=== PATIENT | female | born 1950 | race Hispanic/Latino ===

== ENCOUNTER 2016-06-05 14:30 | Outpatient (CLI) | payer MEDICARE ==
--- NOTE | 2016-06-09 09:08 | PET Report ---
PET/CT:06/05/16 14:30:00 CLINICAL: Breast cancer staging. RADIOPHARMACEUTICAL: 13.44mCi F18-FDG. COMPARISON: 08/03/14 PET/CT TECHNIQUE- Following intravenous injection of F-18 FDG and an approximately 60 minute uptake period, CT and PET images from the mid skull to the upper thighs were acquired with the patient in the fasted state. No contrast was administered. The CT protocol used for this PET CT study is designed for attenuation correction and anatomic localization of PET abnormalities. This it service delivery manager CT is not desired to produce and cannot replace, [id number] diagnostic CT scans with specific imaging protocols for different body parts and indications. Plasma glucose at the time of this test: 91g/dl. The standardized uptake values (SUV) are normalized to patient body weight and indicate the highest activity concentration (SUV max) in a given disease site. FINDINGS: Brain--Physiologic FDG uptake in the visualized regions of the brain. Neck--Physiologic FDG uptake . Chest--Physiologic FDG uptake in mediastinal blood pool and myocardium. Lungs--No abnormal uptake. No pulmonary nodule or mass. Pleura/pericardium--No abnormal uptake. Thoracic nodes--No abnormal uptake. The FDG avid left axillary lymph nodes have resolved. Hepatobiliary--No abnormal uptake. Liver background SUV mean, as a reference for comparing FDG studies, is 4.27 compared to 4.35 on the last exam. No liver mass. Stable benign hepatic cyst in the lateral segment of the left lobe measuring 2.4 cm. Spleen--No abnormal uptake. Pancreas--No abnormal uptake. Adrenal Glands--No abnormal uptake. Kidneys/Ureters/Bladder--No abnormal uptake. Abdominopelvic Nodes--No abnormal uptake. Bowel/Peritoneum/Mesentery--No abnormal uptake. Pelvic organs--No abnormal uptake. Bones/Soft Tissues--Although some FDG avid bone lesions have resolved (including the previous described right humeral lesion), there are numerous new FDG avid bone lesions involving the spine, sternum and pelvis. IMPRESSION- Mixed response to treatment with resolution of some lesions but an overall increase in FDG avid skeletal lesions compared to the previous exam.
== END 2016-06-05 14:31 | disposition home or self-care (01) ==
LOC: PET 14:30
PROVIDERS: ATTEND Internal Medicine Hematology
DX: C50.412 Malignant neoplasm of upper-outer quadrant of left female breast (principal)
CPT/HCPCS: 78815; 82962; A9552

== ENCOUNTER 2017-02-12 11:41 | Outpatient (CLI) | payer MEDICARE ==
[2017-02-12 12:46] LABS: Blood Urea Nitrogen 9 mg/dL (7-17)
[2017-02-12] MEDS ORDERED: NACL ONE (13:49)
--- NOTE | 2017-02-12 15:01 | Cat Scan Report ---
CT scan of chest abdomen and pelvis with IV contrast: Compared to 03/26/16. History: Malignant neoplasm of breast. Findings: No endobronchial or mediastinal mass. No mediastinal, hilar or axillary adenopathy. No pleural or pericardial effusion. Scarring or discoid atelectasis right and left lung without interval change. No significant interval change. Normal size liver. Stable hepatic cyst without interval change. Normal gallbladder pancreas and spleen. Stable ovoid heterogeneous left adrenal mass measuring 4 x 2.7 cm. Normal kidney parenchyma and bladder. No free intraperitoneal fluid or air. No evidence of adenopathy. Gaseous colon with large volume of stool in colon. Stable predominantly scattered sclerotic bone lesions involving the left fourth rib lumbar spine and pelvis. A small lytic lesion of right L3 superior facet. Impression: No definite evidence of pulmonary or hepatic metastases. Stable hepatic cysts. Stable left adrenal mass. No significant interval change in metastatic foci along the skeleton.
--- NOTE | 2017-02-13 14:54 | Nuclear Medicine Report ---
Whole body bone scan: Left breast cancer. Following injection of radionuclide whole body images were obtained approximately 3 hours. Normal dictated identified in the urinary tract and is a good bone to background ratio. Comparison is made to prior to exams dating December and March 2016. There is focal uptake in the lateral aspect of the left fourth rib, right pedicle region of L3 and costovertebral regions of the left eighth and ninth ribs unchanged from prior exams. New focal increased activity is identified in the anterior margins of the left second rib and right 5 through seventh ribs. A new focal area is also identified just above the right acetabulum, proximal right femur at trochanteric location, and questionably in the left maxilla. No other significant findings. Impressions: Interval increase in foci of abnormal activity of concern for metastatic change.
== END 2017-02-12 11:42 | disposition home or self-care (01) ==
LOC: NM 11:41
PROVIDERS: ATTEND Internal Medicine Hematology
DX: C50.412 Malignant neoplasm of upper-outer quadrant of left female breast (principal); J98.11 Atelectasis; K76.89 Other specified diseases of liver; E27.8 Other specified disorders of adrenal gland; M89.9 Disorder of bone, unspecified; E53.8 Deficiency of other specified B group vitamins
CPT/HCPCS: 36415; 71260; 74177; 78306; 82565; 84520; A9503; Q9967

== ENCOUNTER 2017-03-25 17:31 | Emergency (ER) | payer MEDICARE ==
[2017-03-25 18:04] LABS: Hematocrit 27.4 % (30.3-42.9); Hemoglobin 8.8 gm/dl (10.1-14.3); Mean Corpuscular HGB Conc 32 % (30-34); Mean Corpuscular Hemoglobin 32 pg (28-32); Mean Corpuscular Volume 101 fl (79-97); Platelet Count 128 K/mm3 (140-440)
[2017-03-25 18:24] LABS: Anion Gap 20 mmol/L; BUN/Creatinine Ratio 28; Blood Urea Nitrogen 11 mg/dL (7-17); Calcium 9.1 mg/dL (8.4-10.2); Carbon Dioxide 26 mmol/L (22-30); Chloride 99.6 mmol/L (98-107); Glucose 105 mg/dL (65-100); Sodium 142 mmol/L (137-145)
[2017-03-25 19:52] LABS: Basophils % (Manual) 0 % (0.0-1.8); Blastocytes % (Manual) 0 %
[2017-03-25 19:53] LABS: Macrocytosis 1+; Microcytosis 1+; Poikilocytosis 1+
[2017-03-25 19:54] LABS: Diff Status Complete; Platelet Estimate Appears Decreased; Polychromasia 1+
--- NOTE | 2017-03-26 00:42 | Emergency Department Report ---
ED Palpitations HPI - General Chief Complaint: Arrhythmia/Palpitations Stated Complaint: SOB,HEART RACING Time Seen by Provider: 03/25/17 23:12 Source: patient Mode of arrival: Wheelchair Limitations: No Limitations - History of Present Illness MD Complaint: palpitations -: Gradual, week(s) (6) Context: occured during exertion Associated Symptoms: denies other symptoms Treatments Prior to Arrival: other (Resolves with rest. Has been noting anemia on oncology labs but has not been requested to have transfusion.) - Related Data Home Medications Medication Instructions Recorded Confirmed Last Taken Denosumab [Xgeva] 120 mg SQ QMONTH 06/26/16 06/26/16 06/10/15 Duloxetine HCl [DULoxetine] 30 mg PO BID 06/26/16 06/26/16 06/25/16 HYDROmorphone 4 mg PO Q4H PRN 06/26/16 06/26/16 06/25/16 23:30 Letrozole (Nf) [Femara (Nf)] 2.5 mg PO QDAY 06/26/16 06/26/16 06/25/16 Lisinopril [Zestril] 20 mg PO BID 06/26/16 06/26/16 06/25/16 Omeprazole Magnesium [PriLOSEC Otc] 20 mg PO QDAY PRN 06/26/16 06/26/16 06/25/16 Ondansetron [Zofran TAB] 4 mg PO Q8HR PRN 06/26/16 06/26/16 2 Months Ago amLODIPine [Norvasc] 5 mg PO DAILY 06/26/16 06/26/16 06/25/16 fentaNYL [Fentanyl] 1 each TD Q3D 06/26/16 06/26/16 3 Days Ago Allergies Allergy/AdvReac Type Severity Reaction Status Date / Time bupropion HCl Allergy Hives Verified 03/25/17 17:44 [From Wellbutrin] Penicillins Allergy Shortness Verified 03/25/17 17:44 of Breath Tetanus Vaccines and Toxoid Allergy Swelling Verified 03/25/17 17:44 [Tetanus Vaccines & Toxoid] ED Review of Systems ROS: Stated complaint: SOB,HEART RACING Other details as noted in HPI Constitutional: denies: chills, fever Eyes: denies: eye pain, eye discharge, vision change ENT: denies: ear pain, throat pain Respiratory: denies: cough, shortness of breath, wheezing Cardiovascular: denies: chest pain, palpitations Endocrine: no symptoms reported Gastrointestinal: denies: abdominal pain, nausea, diarrhea Genitourinary: denies: urgency, dysuria, discharge Musculoskeletal: denies: back pain, joint swelling, arthralgia Skin: denies: rash, lesions Neurological: denies: headache, weakness, paresthesias Psychiatric: denies: anxiety, depression Hematological/Lymphatic: denies: easy bleeding, easy bruising ED Past Medical Hx - Past Medical History Hx Hypertension: Yes (Reports taking propranolol at home. not currently on.) Hx Heart Attack/AMI: No Hx Renal Disease: No Hx Arthritis: Yes Hx Seizures: No Hx Psychiatric Treatment: Yes (depression/anxiety) Hx Asthma: No Hx COPD: No Additional medical history: left breast mass - Social History Smoking Status: Current Every Day Smoker Substance Use Type: None - Medications Home Medications: Home Medications Medication Instructions Recorded Confirmed Last Taken Type Denosumab [Xgeva] 120 mg SQ QMONTH 06/26/16 06/26/16 06/10/15 History Duloxetine HCl [DULoxetine] 30 mg PO BID 06/26/16 06/26/16 06/25/16 History HYDROmorphone 4 mg PO Q4H PRN 06/26/16 06/26/16 06/25/16 23:30 History Letrozole (Nf) [Femara (Nf)] 2.5 mg PO QDAY 06/26/16 06/26/16 06/25/16 History Lisinopril [Zestril] 20 mg PO BID 06/26/16 06/26/16 06/25/16 History Omeprazole Magnesium [PriLOSEC Otc] 20 mg PO QDAY PRN 06/26/16 06/26/16 History Ondansetron [Zofran TAB] 4 mg PO Q8HR PRN 06/26/16 06/26/16 2 Months Ago History amLODIPine [Norvasc] 5 mg PO DAILY 06/26/16 06/26/16 06/25/16 History fentaNYL [Fentanyl] 1 each TD Q3D 06/26/16 06/26/16 3 Days Ago History ED Physical Exam - General Limitations: No Limitations General appearance: alert, in no apparent distress - Head Head exam: Present: atraumatic, normocephalic - Eye Eye exam: Present: normal appearance - ENT ENT exam: Present: mucous membranes moist - Neck Neck exam: Present: normal inspection - Respiratory Respiratory exam: Present: normal lung sounds bilaterally. Absent: respiratory distress - Cardiovascular Cardiovascular Exam: Present: regular rate, normal rhythm. Absent: systolic murmur, diastolic murmur, rubs, gallop - GI/Abdominal GI/Abdominal exam: Present: soft, normal bowel sounds - Extremities Exam Extremities exam: Present: normal inspection - Back Exam Back exam: Present: normal inspection - Neurological Exam Neurological exam: Present: alert, oriented X3 - Psychiatric Psychiatric exam: Present: normal affect, normal mood - Skin Skin exam: Present: warm, dry, intact, normal color. Absent: rash ED Course Vital Signs 03/25/17 03/25/17 03/25/17 17:44 22:21 22:22 Temperature 100 F H Pulse Rate 111 H 78 83 Respiratory 22 23 17 Rate Blood Pressure 134/81 129/57 O2 Sat by Pulse 100 95 Oximetry 03/25/17 03/25/17 03/25/17 22:23 22:24 22:30 Temperature Pulse Rate 84 79 78 Respiratory 21 12 11 L Rate Blood Pressure 129/57 129/57 139/67 O2 Sat by Pulse 98 98 96 Oximetry 03/25/17 03/25/17 22:45 23:00 Temperature Pulse Rate 83 83 Respiratory 15 13 Rate Blood Pressure 133/70 134/68 O2 Sat by Pulse 96 93 Oximetry ED Medical Decision Making - Lab Data Result diagrams: 03/25/17 17:51 03/25/17 17:51 - EKG Data -: EKG Interpreted by Mi EKG shows normal: sinus rhythm, QRS complexes (intraventricular conduction delay ) Rate: tachycardia - EKG Data Interpretation: no acute changes - Medical Decision Making Patient only has tachycardia with ambulation or any activity. Otherwise she has a HR of 80s at rest with Oxygen sat in the mid to high 90s. D/W oncall Oncologist for Dr. Alexander's group who said they would not transfuse anemia at her level but with it being symptomatic she would but not outpatient. The patient has an appointment with her oncologist in the AM and the patient and her daughter stated that her oncologist would do an outpatient transfusion. If PE study negative, we will send her home for outpatient transfusion. Critical care attestation.: If time is entered above; I have spent that time in minutes in the direct care of this critically ill patient, excluding procedure time. ED Disposition Clinical Impression: Symptomatic anemia Disposition: DC-01 TO HOME OR SELFCARE Is pt being admited?: No Does the pt Need Aspirin: No Condition: Stable Instructions: Anemia (ED) Referrals: VINICIUS ALEXANDER MD [Staff Physician] - 24 Hours
[2017-03-26] MEDS ORDERED: NACL ONE (01:39)
[2017-03-26 05:58] VITALS: BP 132/74
--- NOTE | 2017-03-26 08:04 | Cat Scan Report ---
FINAL REPORT EXAM: CT ANGIO CHEST HISTORY: Tachycardia with SOB. Breast cancer. TECHNIQUE: CT angiogram of the chest was performed, with 2.5 mm thick axial images obtained after the intravenous administration of contrast. Sagittal and coronal reformatted images were also obtained. Comparison is made with prior chest CT 02/12/2017. FINDINGS: The heart is normal in size. There is mild aneurysmal dilatation of the thoracic aorta, measuring up to 4.1 cm in diameter in its ascending portion, tapering to 3.1 cm at the aortic arch, and 2.8 cm in the descending thoracic aorta at the level of the main pulmonary artery. There is no aortic dissection. No filling defect is seen in the central or proximal segmental pulmonary arteries to suggest pulmonary embolus. There is no mediastinal or hilar lymphadenopathy. Again demonstrated is mild fluid in the pericardial recesses. Examination of the lung parenchyma demonstrates small focus of patchy and nodular consolidation at the posteromedial left lung base, not significantly changed compared to prior exam. There are multiple scattered nodules in the mid to lower lung portillo, most prominent at the lung bases, with additional pleural based nodules. These measure up to 6-7 mm in diameter. These are not significantly changed compared to prior exam. In this patient with metastatic disease, pulmonary metastases should be excluded. Other considerations include multifocal infection or underlying interstitial lung disease. There are mild emphysematous changes in the upper lung portillo. Scattered areas of subpleural reticular scarring are seen in both lung portillo. There is no pleural or pericardial effusion. The trachea and visualized proximal airways are patent. There is lobulated 3.1 cm cyst in the left hepatic lobe, stable. A 3.9 x 2.7 cm heterogeneous left adrenal mass is also stable. There is a small hiatal hernia. The remainder of the visualized upper abdomen is unremarkable. There are [id number] spondylotic and degenerative changes seen throughout the spine. Multiple heterogeneous predominately sclerotic lesions are again noted in the thoracic and visualized lumbar spine, in keeping with metastatic disease. A mixed sclerotic and lytic lesion in the lateral left 4th rib is also likely metastatic focus, stable. If not already performed, whole-body nuclear medicine bone scan should be considered for further evaluation osseous metastatic disease. IMPRESSION: 1. No pulmonary embolism seen in the central or proximal segmental pulmonary arteries. 2. Aneurysmal dilatation of the thoracic aorta, measuring up to 4.1 cm in diameter in its ascending portion. 3. Focal patchy nodular consolidation in the posteromedial left lung base, not significantly changed compared to prior exam. Additional multiple scattered pulmonary parenchymal and pleural nodules as described, nonspecific. 4. Multifocal osseous metastatic disease. 5. Heterogeneous left adrenal mass, stable in appearance.
== END 2017-03-26 05:00 | disposition home or self-care (01) ==
LOC: ED 17:31
DX: D64.9 Anemia, unspecified (principal); I10 Essential (primary) hypertension; F17.200 Nicotine dependence, unspecified, uncomplicated
CPT/HCPCS: 36415; 71275; 80048; 83880; 84484; 85007; 85025; 93005; 93010; 99284; Q9967

== ENCOUNTER 2017-04-27 08:26 | Outpatient (CLI) | payer MEDICARE ==
[2017-04-27 09:56] LABS: Blood Urea Nitrogen 18 mg/dL (7-17)
--- NOTE | 2017-04-28 07:32 | Cat Scan Report ---
CT CHEST WITH CONTRAST: HISTORY: Breast cancer, weakness, fatigue, bone pain. COMPARISON: CT chest with contrast dated 02/12/17. Bone scan performed the same day. TECHNIQUE: Helical CT in 1.25mm intervals following IV contrast. Sagittal and coronal reformatted images. FINDINGS: Thyroid gland: Normal. Tracheobronchial tree: Normal. Esophagus: Normal. Heart: Normal. Pericardium: A small to medium pericardial effusion has developed. No obvious pericardial nodularity. Mediastinum: No mediastinal mass or adenopathy is identified. Lung Arceo: Within normal limits. No pulmonary nodule or mass is detected. Pleural Spaces: Small to medium bilateral layering pleural effusions have developed which measures 3-5 cm in thickness posteriorly. Multiple tiny pleural nodules are suspected in the lower lung zones bilaterally concerning for pleural metastasis. Musculoskeletal: The bony structures are osteopenic with degenerative change. Multiple sclerotic bony lesions are identified consistent with bony metastasis. Sclerotic bony lesions are identified in the manubrium, T7, T8, T10, T11 and T12. A sclerotic left lateral fourth rib lesion with associated pathologic fracture is identified. There also appeared to be multiple osteopenic rib fractures anteriorly. These are located on the left side at levels 2 and 3 and on the right side at approximate levels 6,7 and 8. Correlate for history of trauma because there are in no obvious underlying bony lesions in these areas. IMPRESSION: Progression of disease is demonstrated since 02/12/17. Small to medium bilateral pleural effusions and subtle pleural nodules have developed concerning for pleural metastasis bilaterally. A small to medium pericardial effusion has developed although no obvious pericardial nodularity. Multiple bony lesions are identified as outlined above consistent with metastatic disease. There are multiple bilateral rib fractures some of which appear osteopenic/traumatic although a left lateral fourth rib pathologic fracture is suspected.
--- NOTE | 2017-04-28 08:04 | Cat Scan Report ---
CT ABDOMEN PELVIS WITH CONTRAST: HISTORY: Breast cancer, weakness, fatigue, bone pain. COMPARISON: CT abdomen and pelvis with contrast dated 02/12/17. TECHNIQUE: Helical CT in 1.25mm intervals following IV contrast. Sagittal and coronal reconstructions. FINDINGS: Liver: Approximately 9 new small liver lesions are suspected consistent with metastatic disease. Most of the nodules are millimetric in size with the largest nodule measuring 1.2 cm adjacent to the gall bladder fossa. These nodules appear inaccessible or too small to biopsy under CT guidance at this time. Biliary system: Normal. Pancreas: Normal. Spleen: Normal. Kidneys/ureters/bladder: Normal. Adrenal glands: Stable appearance of the left adrenal mass measuring 3.9 x 2.8 cm in axial plane. The right adrenal gland remains normal. Aorta: Normal. Intestines: Normal. Appendix: Not confidently identified, correlate with surgical history. Pelvic viscera: Normal. Ascites: None. Adenopathy: None. Musculoskeletal: Sclerotic bony lesions in the lumbar spine and throughout the pelvis appear increased in size and number by approximately 10-20%. No pathologic fracture is appreciated. IMPRESSION: Mild progression of disease as demonstrated since 02/12/17. Multiple tiny new liver lesions are identified consistent with metastatic disease. Left adrenal mass is stable. Mild progression of the bony lesions is demonstrated.
--- NOTE | 2017-04-28 08:10 | Nuclear Medicine Report ---
BONE SCAN: History: Left breast cancer, bone pain. After injection of isotope, gamma camera imaging of the bony system was done. Comparison is made to the bone scan dated 02/12/[address] chest abdomen and pelvis with contrast performed the same day. There is normal renal and soft tissue uptake. Multiple areas of bony uptake are again identified which overall appears slightly increased since 02/12/17. Focal abnormal uptake is identified in the manubrium, left lateral fourth rib, T7, T8, T10, T11, T12, L4, L5, bilateral pelvis and right femur. These lesions are consistent with bony metastasis. There are focal areas of increased uptake in linear fashion and right anterior ribs 6-8 and left anterior ribs 2-3 which are most consistent with traumatic fractures. IMPRESSION: Mild progression of metastatic disease to the bones is suspected. Multiple bilateral rib fractures are also suspected as outlined above and on CT chest with contrast performed the same day.
== END 2017-04-27 08:27 | disposition home or self-care (01) ==
LOC: NM 08:26
PROVIDERS: ATTEND Internal Medicine Hematology
DX: C50.412 Malignant neoplasm of upper-outer quadrant of left female breast (principal); I31.3 Pericardial effusion (noninflammatory); J90 Pleural effusion, not elsewhere classified; M89.9 Disorder of bone, unspecified; D64.9 Anemia, unspecified; K76.89 Other specified diseases of liver; R53.1 Weakness; R53.83 Other fatigue; I10 Essential (primary) hypertension; F17.200 Nicotine dependence, unspecified, uncomplicated
CPT/HCPCS: 36415; 71260; 74177; 78306; 82565; 84520; A9503; Q9967

== ENCOUNTER 2017-09-09 09:05 | Outpatient (CLI) | payer MEDICARE ==
[2017-09-09 10:28] LABS: Blood Urea Nitrogen 14 mg/dL (7-17)
--- NOTE | 2017-09-09 14:45 | Cat Scan Report ---
CT CHEST WITH CONTRAST: HISTORY: Malignant neoplasm of left breast. COMPARISON: 04/27/17. TECHNIQUE: Helical CT in 1.25mm intervals following IV contrast. Sagittal and coronal reformatted images. FINDINGS: Thyroid gland: Normal. Tracheobronchial tree: Normal. Esophagus: Normal. Heart: Normal. Pericardium: Trace pericardial effusion has decreased slightly. Mediastinum: No mediastinal mass or adenopathy has developed. Lung Arceo: There is minor segmental atelectasis in the lingula. Otherwise, the lungs are clear. No suspicious pulmonary nodule or mass has developed. Pleural Spaces: Bilateral pleural effusions have decreased by at least 50% since the previous exam. Subtle pleural nodules at the lung bases have nearly resolved but remain suspicious for pleural metastasis. Musculoskeletal: Osteopenia is again noted. Multiple suspicious sclerotic bony lesions are again identified throughout the thoracic spine, manubrium/sternum and bilateral ribs. There are multiple healing bilateral anterior rib fractures as well. There appear to be a few new fractured ribs since the previous CT. IMPRESSION: No overwhelming change since 04/19/17. Bilateral pleural effusions and pleural nodules decreased since the previous exam. The bony lesions appear stable or perhaps a few new bony lesions are identified. No evidence for pulmonary mass or mediastinal adenopathy.
--- NOTE | 2017-09-09 14:50 | Cat Scan Report ---
CT ABDOMEN PELVIS WITH CONTRAST: HISTORY: Malignant neoplasm of left breast. COMPARISON: 04/27/17. TECHNIQUE: Helical CT in 1.25mm intervals following IV contrast. Sagittal and coronal reconstructions. FINDINGS: Liver: The previously described liver lesions are not clearly identified on today's exam and have presumably resolved. Lobulated cyst measuring 3.5 cm and the left hepatic lobe is unchanged. No new liver mass. Biliary system: Normal. Pancreas: Normal. Spleen: Normal. Kidneys/ureters/bladder: Normal. Adrenal glands: The left adrenal mass has decreased from 3.9 x 2.7 cm to 3.6 x 2.5 cm. The right adrenal gland remains normal. Aorta: Normal. Intestines: Normal. Appendix: Not confidently identified. Pelvic viscera: Normal. Ascites: None. Adenopathy: None. Musculoskeletal: Multiple sclerotic bony lesions stool at the lumbar spine and pelvis appear relatively stable. IMPRESSION: A positive response to therapy is demonstrated since 04/27/17. Multiple liver lesions have essentially resolved since the previous exam. Left adrenal mass has decreased in size as described. Multiple bony lesions appear stable. No new areas of disease are identified.
--- NOTE | 2017-09-09 14:59 | Nuclear Medicine Report ---
NUCLEAR MEDICINE BONE SCAN History: Malignant neoplasm of left breast. Comparison: 04/27/17. Findings: Multiple areas of suspicious bony uptake are again identified. Focal uptake in the manubrium is unchanged. There are 2 small foci of new uptake in the midsternum consistent with metastatic disease. There also appears to be a few new areas of rib uptake at the fourth level on the left side and third and sixth levels on the right side. Abnormal uptake at multiple levels throughout the thoracic spine, lumbar spine and pelvis appear stable. Lytic-appearing lesion in right femoral shaft is unchanged. There is focal increased uptake in nearly all anterior ribs bilaterally in a linear fashion consistent with a traumatic origin. Multiple subacute fractures were demonstrated in these areas on CT. There appears to be several new rib fractures since 04/27/17. IMPRESSION: Mild progression of disease to the bones as demonstrated on bone scan. There are a few new bilateral rib lesions and sternal lesions. Spinal and pelvic uptake appears stable. Multiple bilateral anterior rib fractures, increased since the previous exam.
== END 2017-09-09 09:06 | disposition home or self-care (01) ==
LOC: NM 09:05
PROVIDERS: ATTEND Internal Medicine Hematology
DX: C50.412 Malignant neoplasm of upper-outer quadrant of left female breast (principal); K76.89 Other specified diseases of liver; E27.8 Other specified disorders of adrenal gland; M89.9 Disorder of bone, unspecified; J98.11 Atelectasis; J90 Pleural effusion, not elsewhere classified; M85.80 Other specified disorders of bone density and structure, unspecified site; S22.43XD Multiple fractures of ribs, bilateral, subsequent encounter for fracture with routine healing; I10 Essential (primary) hypertension; X58.XXXD Exposure to other specified factors, subsequent encounter
CPT/HCPCS: 36415; 71260; 74177; 78306; 82565; 84520; A9503; Q9967